=== PATIENT | female | born 1975 | race American Indian/Alaskan Native ===

== ENCOUNTER 2019-11-07 22:11 | Emergency (ER) | payer OTHER ==
[2019-11-07] MEDS ORDERED: ASPIRIN 325 MG TAB PO ONE (22:31)
[2019-11-07 22:58] LABS: Basophils # (Auto) 0.1 K/mm3 (0.0-0.1); Basophils % (Auto) 1.2 % (0.0-1.8); Eosinophils # (Auto) 0.2 K/mm3 (0.0-0.4); Eosinophils % (Auto) 2.8 % (0.0-4.3); Hematocrit 36.9 % (30.3-42.9); Hemoglobin 12.9 gm/dl (10.1-14.3); Lymphocytes # (Auto) 2.6 K/mm3 (1.2-5.4); Lymphocytes % (Auto) 32.1 % (13.4-35.0); Mean Corpuscular HGB Conc 35 % (30-34); Mean Corpuscular Volume 94 fl (79-97); Monocytes # (Auto) 0.7 K/mm3 (0.0-0.8); Monocytes % (Auto) 9.2 % (0.0-7.3); Platelet Count 221 K/mm3 (140-440); Red Blood Count 3.93 M/mm3 (3.65-5.03); Red Cell Distribution Width 13.4 % (13.2-15.2)
[2019-11-07 23:18] LABS: Blood Urea Nitrogen 10 mg/dL (7-17); Calcium 9.3 mg/dL (8.4-10.2); Hemolysis Index 10
[2019-11-07 23:20] LABS: BUN/Creatinine Ratio 14
--- NOTE | 2019-11-07 23:43 | XRay Report ---
CHEST 1 VIEW INDICATION: Chest Pain COMPARISON: None none FINDINGS: SUPPORT DEVICES: None. HEART / MEDIASTINUM: No significant abnormality. LUNGS / PLEURA: No significant pulmonary or pleural abnormality. No pneumothorax. ADDITIONAL FINDINGS: IMPRESSION: 1. No acute cardiopulmonary disease Signer Name: Jose Tabor MD Signed: 11/07/2019 11:39 PM Workstation Name: [id number]
[2019-11-07] MEDS ORDERED: BUTALB/ACETAMINOPHEN/CAFFEINE TAB PO ONE (23:56)
--- NOTE | 2019-11-08 00:04 | Emergency Department Report ---
ED Chest Pain HPI - General Chief Complaint: Chest Pain Stated Complaint: CHEST PAIN, NAUSEA, AND VOMITING Time Seen by Provider: 11/07/19 23:35 Source: patient Mode of arrival: Ambulatory Limitations: No Limitations - History of Present Illness Initial Comments: 43-year-old female, history of lupus, rheumatoid arthritis, presents to ED with complaint of headache and chest pain. Patient states her blood pressure has been elevated for the last couple of days. States she was scheduled to have procedure done with her dentist earlier in the week, however they were unable to do so because her blood pressure was 140s/110s. Patient states prior to the COVID pandemic she was being followed by a merchant seaman who was trying to determine whether or not she should be on blood pressure medication. Patient is currently not on any medications for hypertension. Patient states she has had a headache over the last couple days, however the headache became worse a couple of hours ago. She reports associated chest pain with the headache. States she had some tingling in bilateral arms as well. She reports nausea. Patient reports chest pain is very mild, however the headache is worse. MD Complaint: chest pain -: hour(s) (2) Onset: during rest Pain Location: substernal Pain Radiation: none Severity: mild Quality: aching Consistency: constant Improves With: nothing Worsens With: nothing re: nausea. denies: diaphoresis, dyspnea Other Symptoms: denies: cough, fever, leg swelling - Related Data Home Medications Medication Instructions Recorded Confirmed Last Taken Duloxetine HCl [Cymbalta] 20 mg PO QDAY 12/29/14 12/29/14 12/28/14 Hydroxychloroquine [Plaquenil] 200 mg PO QDAY 12/29/14 12/29/14 12/28/14 LORazepam [Ativan] 1 mg PO QHS 12/29/14 12/29/14 12/28/14 oxyCODONE /ACETAMINOPHEN [Percocet 1 tab PO Q6HR PRN 12/29/14 12/29/14 12/28/14 5/325] predniSONE 1 mg PO QDAY 12/29/14 12/29/14 12/28/14 traMADoL [Ultram] 50 mg PO Q4HR PRN 12/29/14 12/29/14 12/28/14 Previous Rx's Medication Instructions Recorded Last Taken Type Butalb/Acetamin/Caff 50-325-40 1 tab PO Q6HR PRN #10 tab 11/08/19 Unknown Rx [Fioricet] hydroCHLOROthiazide [Hctz] 12.5 mg PO QDAY #30 capsule 11/08/19 Unknown Rx Allergies Allergy/AdvReac Type Severity Reaction Status Date / Time pseudoephedrine HCl Allergy Unknown Verified 12/29/14 10:15 [From Sudafed] Heart Score - HEART Score History: Slightly suspicious EKG: Normal Age: < 45 Risk factors: 1-2 risk factors Troponin: < normal limit HEART Score: 1 ED Review of Systems ROS: Stated complaint: CHEST PAIN, NAUSEA, AND VOMITING Other details as noted in HPI Comment: All other systems reviewed and negative Constitutional: denies: fever Respiratory: denies: shortness of breath Cardiovascular: chest pain Neurological: headache, paresthesias. denies: weakness ED Past Medical Hx - Past Medical History Previous Medical History?: Yes Hx Hypertension: Yes Hx Arthritis: Yes (Rheumatoid) Hx Psychiatric Treatment: Yes (depression, bipolar) Additional medical history: lupus, - Surgical History Past Surgical History?: No - Social History Smoking Status: Never Smoker Substance Use Type: None - Medications Home Medications: Home Medications Medication Instructions Recorded Confirmed Last Taken Type Duloxetine HCl [Cymbalta] 20 mg PO QDAY 12/29/14 12/29/14 12/28/14 History Hydroxychloroquine [Plaquenil] 200 mg PO QDAY 12/29/14 12/29/14 12/28/14 History LORazepam [Ativan] 1 mg PO QHS 12/29/14 12/29/14 12/28/14 History oxyCODONE /ACETAMINOPHEN [Percocet 1 tab PO Q6HR PRN 12/29/14 12/29/14 12/28/14 History 5/325] predniSONE 1 mg PO QDAY 12/29/14 12/29/14 12/28/14 History traMADoL [Ultram] 50 mg PO Q4HR PRN 12/29/14 12/29/14 12/28/14 History Butalb/Acetamin/Caff 50-325-40 1 tab PO Q6HR PRN #10 tab 11/08/19 Unknown Rx [Fioricet] hydroCHLOROthiazide [Hctz] 12.5 mg PO QDAY #30 capsule 11/08/19 Unknown Rx ED Physical Exam - General Limitations: No Limitations General appearance: alert, in no apparent distress - Head Head exam: Present: atraumatic, normocephalic - Eye Eye exam: Present: normal appearance, EOMI - ENT ENT exam: Present: normal exam - Neck Neck exam: Present: normal inspection - Respiratory Respiratory exam: Present: normal lung sounds bilaterally. Absent: respiratory distress - Cardiovascular Cardiovascular Exam: Present: regular rate, normal rhythm - GI/Abdominal GI/Abdominal exam: Present: soft. Absent: distended, tenderness - Extremities Exam Extremities exam: Present: normal inspection - Neurological Exam Neurological exam: Present: alert, oriented X3, CN II-XII intact, normal gait. Absent: motor sensory deficit - Psychiatric Psychiatric exam: Present: normal affect, normal mood - Skin Skin exam: Present: warm, dry, intact, normal color ED Course Vital Signs 11/07/19 11/07/19 11/08/19 22:22 23:50 00:14 Temperature 98.2 F 98.6 F Pulse Rate 87 82 Respiratory 18 13 18 Rate Blood Pressure 157/102 Blood Pressure 134/93 [Left] O2 Sat by Pulse 100 99 Oximetry 11/08/19 11/08/19 11/08/19 00:15 00:30 01:06 Temperature Pulse Rate 90 78 84 Respiratory 16 21 17 Rate Blood Pressure 144/89 133/97 133/97 Blood Pressure [Left] O2 Sat by Pulse 100 100 100 Oximetry 11/08/19 11/08/19 11/08/19 01:14 01:45 02:15 Temperature Pulse Rate 77 78 Respiratory 18 12 18 Rate Blood Pressure 138/94 120/76 Blood Pressure [Left] O2 Sat by Pulse 100 99 Oximetry ED Medical Decision Making - Lab Data Result diagrams: 11/07/19 22:40 11/07/19 22:40 - EKG Data -: EKG Interpreted by Mo EKG shows normal: sinus rhythm, axis, intervals, QRS complexes, ST-T waves - EKG Data When compared to previous EKG there are: no significant change - Radiology Data Radiology results: report reviewed, image reviewed - Medical Decision Making 43-year-old female, history of lupus, presents to ED with headache and chest pain. EKG unremarkable, troponin negative x2. Chest x-ray normal. CTA negative for any evidence of PE or any other abnormalities. CT head negative for any acute findings. Neuro exam normal. Blood pressure has improved here in ED. It was slightly elevated upon presentation. Patient reports mild improvement of headache with Fioricet. Patient states blood pressure has been elevated all week. Will start patient on low-dose HCTZ. Patient advised to follow-up with her PCP this upcoming week. She will be discharged at this time. Return precautions given. - Differential Diagnosis ACS, PE, pneumonia, intracranial abnormality Critical care attestation.: If time is entered above; I have spent that time in minutes in the direct care of this critically ill patient, excluding procedure time. ED Disposition Clinical Impression: Acute headache, Acute chest pain, Hypertension Disposition: TO HOME OR SELFCARE Is pt being admited?: No Condition: Stable Instructions: Chest Pain (ED), Acute Headache (ED), Hypertension (ED) Prescriptions: Butalb/Acetamin/Caff 50-325-40 [Fioricet] 1 tab PO Q6HR PRN #10 tab PRN Reason: Headache hydroCHLOROthiazide [Hctz] 12.5 mg PO QDAY #30 capsule Referrals: PRIMARY MD TOPHER [Primary Care Provider] - 3-5 Days BILL DOWNING MD [Referring] - 3-5 Days GALE SHRESTHA MD [Staff Physician] - 3-5 Days Time of Disposition: 02:31
[2019-11-08 00:29] LABS: INR 1.04 (0.87-1.13)
[2019-11-08 00:30] LABS: Partial Thromboplastin Time 34.9 Sec. (24.2-36.6)
--- NOTE | 2019-11-08 01:24 | Cat Scan Report ---
CTA CHEST WITH IV CONTRAST INDICATION / CLINICAL INFORMATION: chest pain. TECHNIQUE: Axial CT images were obtained through the chest after injection of 100 cc Omnipaque 350 mg percent IV contrast. 3 plane MIP and/or 3D reconstructions were produced. All CT scans at this location are per formed using CT dose reduction for ALARA by means of automated exposure control. COMPARISON: None available. FINDINGS: PULMONARY ARTERIES: No pulmonary emboli. THORACIC AORTA: No significant abnormality. HEART: No significant abnormality. CORONARY ARTERIES: No significant calcification. PLEURA: No pleural effusion. No pneumothorax. LYMPH NODES: No significant adenopathy. LUNGS: No acute air space or interstitial disease. ADDITIONAL FINDINGS: None. UPPER ABDOMEN: No acute findings. SKELETAL STRUCTURES: No significant osseous abnormality. IMPRESSION: 1. No CT evidence for pulmonary embolism. 2. No acute findings. Signer Name: Jose Tabor MD Signed: 11/08/2019 1:19 AM Workstation Name: [id number]
--- NOTE | 2019-11-08 01:25 | Cat Scan Report ---
CT HEAD WITHOUT CONTRAST HISTORY: headache COMPARISON: None TECHNIQUE: CT imaging of the head was performed in the axial, sagittal, and coronal projections and bone algori thm in axial projection in the soft tissue algorithm. All CT scans at this location are performed using CT dose reduction for ALARA by means of automated e xposure control. CONTRAST: None. FINDINGS: Cerebral and Cerebellar Hemispheres: No evidence of mass or mass effect. No midline shift. No acute hemorrhage. No acute cortical infarction. No extra-axial fluid collection. Ventricles: Normal in size and configuration for age. Osseous Structures: No significant abnormality. Visualized Paranasal Sinuses: No significant abnormality. Additional Findings: None IMPRESSION: 1. No acute intracranial abnormality. NOTE: Acute infarct may not be visible by noncontrast CT. Signer Name: Jose Tabor MD Signed: 11/08/2019 1:20 AM Workstation Name: [id number]
[2019-11-08 02:29] VITALS: BP 120/76
== END 2019-11-08 02:50 | disposition home or self-care (01) ==
LOC: ED 22:11
DX: R51 Headache (principal); R07.89 Other chest pain; I10 Essential (primary) hypertension; M19.91 Primary osteoarthritis, unspecified site; F31.9 Bipolar disorder, unspecified; Z79.899 Other long term (current) drug therapy; Z88.8 Allergy status to other drugs, medicaments and biological substances
CPT/HCPCS: 36415; 70450; 71045; 71275; 80048; 84484; 84703; 85025; 85379; 85610; 85730; 93005; 99285; Q9967